=== PATIENT | male | born 1980 | race Two or more races ===

== ENCOUNTER 2018-09-08 15:21 | Inpatient (IN) | payer OTHER ==
[~2018-09-08] VITALS: Ht 172.7 cm; Wt 83.9 kg
[2018-09-08] MEDS ORDERED: DICLO GEL1 EACH (15:43)
[2018-09-08] MEDS ORDERED: DICLOFENAC SODI50 MG (15:44)
[2018-09-21] MEDS ORDERED: INTEGRA F CAPS1 EACH PO (13:01)
[2018-09-21] MEDS ORDERED: LINEZOLID600 MG PO (13:01)
[2018-09-21] MEDS ORDERED: FAMOTIDINE20 MG PO (13:01)
[2018-09-21] MEDS ORDERED: AMLODIPINE BESYL5 MG PO (13:01)
[2018-09-21] MEDS ORDERED: ABANEU-SL TABL1 EACH SL (13:01)
[2018-09-21] MEDS ORDERED: AMOX1TAB5 PO (13:01)
== END 2018-09-21 13:34 | disposition home or self-care (01) | DRG 660 ==
LOC: ER 15:21 → MEDJ 18:49 → MEDI 09-17 20:44
PROC: CT131ZZ Planar Nuclear Medicine Imaging of Kidneys, Ureters and Bladder using Technetium 99m (Tc-99m) (ICD-10-PCS; 2018-09-12)
PROC: BT43ZZZ Ultrasonography of Bilateral Kidneys (ICD-10-PCS; principal; 2018-09-13)
PROC: 0T768DZ Dilation of Right Ureter with Intraluminal Device, Via Natural or Artificial Opening Endoscopic (ICD-10-PCS; 2018-09-14)
PROC: BT1DZZZ Fluoroscopy of Right Kidney, Ureter and Bladder (ICD-10-PCS; 2018-09-14)
PROC: B54DZZZ Ultrasonography of Bilateral Lower Extremity Veins (ICD-10-PCS; 2018-09-16)
PROC: BQ3MZZZ Magnetic Resonance Imaging (MRI) of Left Foot (ICD-10-PCS; 2018-09-18)
DX: N17.8 Other acute kidney failure (principal); N39.0 Urinary tract infection, site not specified; L03.116 Cellulitis of left lower limb; I12.0 Hypertensive chronic kidney disease with stage 5 chronic kidney disease or end stage renal disease; D63.1 Anemia in chronic kidney disease; N18.5 Chronic kidney disease, stage 5; R33.8 Other retention of urine; N13.5 Crossing vessel and stricture of ureter without hydronephrosis; R80.8 Other proteinuria; N13.39 Other hydronephrosis; B35.3 Tinea pedis; B95.62 Methicillin resistant Staphylococcus aureus infection as the cause of diseases classified elsewhere; Z79.1 Long term (current) use of non-steroidal anti-inflammatories (NSAID)
CPT/HCPCS: 73725